=== PATIENT | male | born 1945 ===

== ENCOUNTER 2021-06-25 18:20 | Outpatient (REF) | payer OTHER, SELFPAY ==
[2021-06-25 20:54] LABS: Abs Immature Grans 0.05 10^3/uL (0.0-0.06); Absolute Eosinophil Count 1.05 10^3/uL (0.0-0.7); Basophils % 0.7; Eosinophils % 7.4; HCT 28.7 % (40.0-50.0); Immature Grans % 0.4; Lymphocytes % 9.1; MCH 33.1 pg (27.0-33.0); MCHC 31.4 % (32.0-36.0); MCV 105.5 fL (80-95); MPV 8.7 fL (8.0-11.0); Neutrophils % 75.4; Nucleated RBC 0 %; Platelet Count 342 10^3/uL (130-400); RBC 2.72 10^6/uL (4.36-5.78); RDW 17.2 % (11.8-14.1); RDW-SD 66.6 fL; WBC 14.25 10^3/uL (4.4-10.8)
[2021-06-25 21:01] LABS: Absolute Neutrophil Count 10.74 10^3/uL (1.2-6.7)
[2021-06-25 21:18] LABS: Diff Comment RBC Morph Reviewed; Macrocytosis 1+
[2021-06-25 21:39] LABS: ALT 25 U/L (16-63); AST 17 U/L (15-37); Albumin 2.4 g/dL (3.4-5.0); Alkaline Phosphatase 67 U/L (46-116); Anion Gap 7.1 mmol/L (3-11); BUN 21 mg/dL (7-18); Bilirubin, Total 0.1 mg/dL (0.2-1.0); CO2 28.9 mmol/L (21.0-32.0); CREATININE 1.2 mg/dL (0.70-1.30); Calcium 8.2 mg/dL (8.5-10.1); Chloride 102 mmol/L (98-107); Estimated GFR 59.18 (mL/min/1.73m2); Glucose 115 mg/dL (74-106); Potassium 4.5 mmol/L (3.5-5.1); Sodium 138 mmol/L (136-145); Total Protein 5.2 g/dL (6.4-8.2)
== END 2021-06-25 18:21 | disposition home or self-care (01) ==
LOC: LBN 18:20
PROVIDERS: Visit Provider Family Medicine
DX: C67.0 Malignant neoplasm of trigone of bladder (principal)
CPT/HCPCS: 80053; 85025

== ENCOUNTER 2021-07-05 10:35 | Outpatient (REF) | payer MEDICARE, SELFPAY ==
[2021-07-05 12:22] LABS: Abs Immature Grans 0.02 10^3/uL (0.0-0.06); Absolute Basophil Count 0.06 10^3/uL (0.0-0.2); Absolute Eosinophil Count 0.58 10^3/uL (0.0-0.7); Absolute Lymphocyte Count 0.94 10^3/uL (1.2-3.4); Absolute Monocyte Count 0.47 10^3/uL (0.1-0.8); Absolute Neutrophil Count 3.09 10^3/uL (1.2-6.7); Basophils % 1.2; Eosinophils % 11.2; HCT 31.6 % (40.0-50.0); HGB 9.8 g/dL (13.5-17.5); Immature Grans % 0.4; Lymphocytes % 18.2; MCH 32.6 pg (27.0-33.0); MPV 8.7 fL (8.0-11.0); Monocytes % 9.1; Neutrophils % 59.9; Nucleated RBC 0 %; Platelet Count 332 10^3/uL (130-400); RBC 3.01 10^6/uL (4.36-5.78); RDW 15.7 % (11.8-14.1); RDW-SD 60.1 fL; WBC 5.16 10^3/uL (4.4-10.8)
[2021-07-05 12:24] LABS: Anion Gap 4.2 mmol/L (3-11); BUN 20 mg/dL (7-18); CO2 28.8 mmol/L (21.0-32.0); CREATININE 1.2 mg/dL (0.70-1.30); Calcium 8.8 mg/dL (8.5-10.1); Chloride 109 mmol/L (98-107); Estimated GFR 59.18 (mL/min/1.73m2); Glucose 101 mg/dL (74-106); Potassium 4.7 mmol/L (3.5-5.1); Sodium 142 mmol/L (136-145)
== END 2021-07-05 10:36 | disposition home or self-care (01) ==
LOC: LBN 10:35
PROVIDERS: Visit Provider Nurse Practitioner Family
DX: I10 Essential (primary) hypertension (principal)
CPT/HCPCS: 80048; 85025